=== PATIENT | female | born 1960 | race Caucasian/White ===

== ENCOUNTER 2022-06-03 16:12 | Emergency (ER) | payer OTHER ==
[~2022-06-03] VITALS: Ht 134.6 cm; Wt 47.6 kg
[~2022-06-03 16:12] MED LIST: AMOX-999 PO; ASPI-1749 PO; AZIT250T11 PO; CARV12.52 PO; LIOT0.008 PO; MUC600 PO; VITD400 PO; XAR10 PO; [UNRECOGNIZED DRUG - CODE] OP
[2022-06-03 16:30] VITALS: BP 132/66
--- NOTE | 2022-06-03 17:38 | NUR ---
Krish newell in [facility] - 06/03/22 at 1740 by [id number]
--- NOTE | 2022-06-03 18:00 | NUR ---
REFERRED FROM URGENT CARE FOR PNEUMONIA C/O COUGH, DIFFICULTY BREATHING , WEAKNESS X 4 DAYS. BLOOD SUGAR 207 AT THIS TIME. PMH: ESRD WITH DIALYSIS
--- NOTE | 2022-06-03 18:31 | NUR ---
Krish newell in [facility] - 06/03/22 at 1834 by [email or web address] REFERRED FROM URGENT CARE FOR PNEUMONIA C/O COUGH, DIFFICULTY BREATHING , WEAKNESS X 4 DAYS. BLOOD SUGAR 207 AT THIS TIME. PMH: ESRD WITH DIALYSIS
--- NOTE | 2022-06-03 18:35 | NUR ---
Patient discharged with v/s stable. Written and verbal after care instructions given. Patient verbalized understanding. Ambulatory with steady gait. All questions addressed prior to discharge. Advised to follow up with PMD.
== END 2022-06-03 18:35 | disposition home or self-care (01) ==
LOC: MED 16:12
DX: J81.1 Chronic pulmonary edema (principal); N18.6 End stage renal disease; I10 Essential (primary) hypertension; E11.9 Type 2 diabetes mellitus without complications; Z99.2 Dependence on renal dialysis; Z79.4 Long term (current) use of insulin; Z79.899 Other long term (current) drug therapy
CPT/HCPCS: 71045; 99283